=== PATIENT | female | born 1980 | race Caucasian/White ===

== ENCOUNTER 2016-07-11 08:00 | Outpatient (CLI) | payer MEDICAID | END 2016-07-11 08:01 | disposition home or self-care (01) | DX: R53.83 Other fatigue (principal); R61 Generalized hyperhidrosis; L65.9 Nonscarring hair loss, unspecified ==

== ENCOUNTER 2021-12-01 10:58 | Outpatient (CLI) | payer MEDICAID ==
[2021-12-01 17:58] LABS: BASOPHILS % (AUTO) 0.5 %; EOSINOPHILS # (AUTO) 0.1 10^3/uL (0.0-0.7); EOSINOPHILS % (AUTO) 2.2 %; HCT - HEMATOCRIT 42.1 % (37.0-47.0); HGB - HEMOGLOBIN 14.1 g/dL (12.0-16.0); LYMPHOCYTES # (AUTO) 1.7 10^3/uL (1.5-3.5); LYMPHOCYTES % (AUTO) 30.1 %; MEAN CORPUSCULAR HEMOGLOBIN 33.2 pg (27.0-31.0); MEAN CORPUSCULAR HGB CONC 33.5 g/dL (32.0-36.0); MEAN CORPUSCULAR VOLUME 99.1 fL (81.0-99.0); MEAN PLATELET VOLUME 10.9 fL (7.9-10.8); MONOCYTES # (AUTO) 0.3 10^3/uL (0.0-1.0); MONOCYTES % (AUTO) 5.9 %; NEUTROPHILS # (AUTO) 3.5 10^3/uL (1.5-6.6); PLT - PLATELET COUNT 299 10^3/uL (130-450); RED BLOOD COUNT 4.25 10^6/uL (4.20-5.40); RED CELL DISTRIBUTION WIDTH 11.5 % (12.0-15.0); WHITE BLOOD COUNT 5.8 x10^3/uL (4.8-10.8)
[2021-12-01 18:12] LABS: ALBUMIN 4.6 g/dL (3.2-5.5); ALBUMIN/GLOBULIN RATIO 1.4 (1.0-2.2); ALKALINE PHOSPHATASE 45 IU/L (42-121); ALT ALANINE AMINOTRANSFERASE 17 IU/L (10-60); AST ASPARTATE AMINOTRANSFERASE 21 IU/L (10-42); BILIRUBIN,TOTAL 0.7 mg/dL (0.2-1.0); BUN - BLOOD UREA NITROGEN 12 mg/dL (6-20); CALCIUM 9.8 mg/dL (8.5-10.3); CARBON DIOXIDE - CO2 28 mmol/L (21-32); CHLORIDE 100 mmol/L (101-111); CHOL/HDL RATIO 4.7 (<4.4); CHOLESTEROL 220 mg/dL; CREATININE 0.7 mg/dL (0.4-1.0); GFR - MDRD 93 (>89); GLUCOSE 96 mg/dL (70-100); HDL CHOLESTEROL 47 mg/dL; LDL CHOLESTEROL,CALCULATED 143 mg/dL; POTASSIUM 4.3 mmol/L (3.5-5.0); SODIUM 137 mmol/L (135-145); TOTAL PROTEIN 7.9 g/dL (6.7-8.2); TRIGLYCERIDES 148 mg/dL; VLDL CHOLESTEROL 30 mg/dL
[2021-12-01 18:20] LABS: THYROID STIMULATING HORMONE 2.16 uIU/mL (0.34-5.60)
[2021-12-01 18:31] LABS: FOLATE 15.54 ng/mL (5.90 - >24.8)
== END 2021-12-01 10:59 | disposition home or self-care (01) ==
LOC: LAB.N 10:58
PROVIDERS: ATTEND Physician Assistant
DX: R20.2 Paresthesia of skin (principal); Z13.9 Encounter for screening, unspecified; Z13.220 Encounter for screening for lipoid disorders; L65.9 Nonscarring hair loss, unspecified; F10.11 Alcohol abuse, in remission
CPT/HCPCS: 36415; 80053; 80061; 82306; 82607; 82746; 83721; 84443; 85025

== ENCOUNTER 2022-05-05 11:27 | Outpatient (CLI) | payer MEDICAID ==
[2022-05-09 19:29] LABS: CHLAMYDIA TRACHOMATIS DNA NEGATIVE (NEGATIVE); NEISSERIA GONORRHOEAE DNA NEGATIVE (NEGATIVE); TRICHOMONAS VAGINALIS DNA NEGATIVE (NEGATIVE)
== END 2022-05-05 23:59 | disposition home or self-care (01) ==
LOC: LAB.WCP 11:27
PROVIDERS: ATTEND Internal Medicine
DX: N30.00 Acute cystitis without hematuria (principal)
CPT/HCPCS: 87491; 87591; 87661

== ENCOUNTER 2022-11-20 10:43 | Outpatient (CLI) | payer MEDICAID ==
[2022-11-20 17:36] LABS: BASOPHILS % (AUTO) 0.5 %; EOSINOPHILS # (AUTO) 0.1 10^3/uL (0.0-0.7); EOSINOPHILS % (AUTO) 1.5 %; HCT - HEMATOCRIT 44.1 % (37.0-47.0); HGB - HEMOGLOBIN 15.1 g/dL (12.0-16.0); LYMPHOCYTES # (AUTO) 2.2 10^3/uL (1.5-3.5); LYMPHOCYTES % (AUTO) 34.5 %; MEAN CORPUSCULAR HEMOGLOBIN 34.9 pg (27.0-31.0); MEAN CORPUSCULAR HGB CONC 34.2 g/dL (32.0-36.0); MEAN CORPUSCULAR VOLUME 101.8 fL (81.0-99.0); MEAN PLATELET VOLUME 10.8 fL (7.9-10.8); MONOCYTES # (AUTO) 0.5 10^3/uL (0.0-1.0); MONOCYTES % (AUTO) 8.2 %; NEUTROPHILS # (AUTO) 3.6 10^3/uL (1.5-6.6); PLT - PLATELET COUNT 291 10^3/uL (130-450); RED BLOOD COUNT 4.33 10^6/uL (4.20-5.40); RED CELL DISTRIBUTION WIDTH 12.4 % (12.0-15.0); WHITE BLOOD COUNT 6.5 x10^3/uL (4.8-10.8)
[2022-11-20 17:52] LABS: ALBUMIN 4.2 g/dL (3.2-5.5); ALBUMIN/GLOBULIN RATIO 1.1 (1.0-2.2); ALKALINE PHOSPHATASE 68 IU/L (42-121); ALT ALANINE AMINOTRANSFERASE 117 IU/L (10-60); AST ASPARTATE AMINOTRANSFERASE 104 IU/L (10-42); BILIRUBIN,TOTAL 1.2 mg/dL (0.2-1.0); BUN - BLOOD UREA NITROGEN 12 mg/dL (6-20); CALCIUM 9.2 mg/dL (8.5-10.3); CARBON DIOXIDE - CO2 24 mmol/L (21-32); CHLORIDE 103 mmol/L (101-111); CHOL/HDL RATIO 3.1 (<4.4); CHOLESTEROL 229 mg/dL; CREATININE 0.7 mg/dL (0.4-1.0); GFR - MDRD 92 (>89); GLUCOSE 74 mg/dL (70-100); HDL CHOLESTEROL 73 mg/dL; LDL CHOLESTEROL,CALCULATED 130 mg/dL; LDL/HDL RATIO 1.8 (<4.4); POTASSIUM 4.4 mmol/L (3.5-5.0); SODIUM 138 mmol/L (135-145); TRIGLYCERIDES 132 mg/dL; VLDL CHOLESTEROL 26 mg/dL
[2022-11-20 18:01] LABS: THYROID STIMULATING HORMONE 3.82 uIU/mL (0.34-5.60)
== END 2022-11-20 10:44 | disposition home or self-care (01) ==
LOC: LAB.N 10:43
PROVIDERS: ATTEND Physician Assistant
DX: Z13.9 Encounter for screening, unspecified (principal)
CPT/HCPCS: 36415; 80053; 80061; 83721; 84443; 85025

== ENCOUNTER 2022-12-02 07:36 | Outpatient (CLI) | payer MEDICAID ==
--- NOTE | 2022-12-02 12:33 | Ultrasound Report ---
PROCEDURE: Abdomen Limited INDICATIONS: ELEVATED LIVER FUNCTION TESTS TECHNIQUE: Real-time focused scanning was performed of the abdomen, with image documentation. COMPARISONS: None. FINDINGS: Liver: The liver has a normal size. Hepatic echotexture is increased consistent with hepatic steatos is. Gallbladder: Unremarkable. Biliary ducts: Intrahepatic bile ducts are non-dilated. Extrahepatic bile duct caliber measures 4.9 mm. Normal is 6-7 mm or less in diameter, or 10 mm or less post-cholecystectomy. Pancreas: Visualized portions of the pancreas are sonographically normal. Right kidney: Normal in size and echotexture. Right kidney measures 9.4 cm long. No hydronephrosis o r nephrolithiasis. No solid masses. No complex renal cystic lesions which require follow-up. Aorta: Visualized aorta is normal in caliber at less than 3 cm. IVC: Intrahepatic inferior vena cava is patent. Miscellaneous: No free abdominal fluid. IMPRESSION: 1. Hyperechoic liver consistent with hepatic steatosis or cirrhosis. 2. No acute abnormality. Reviewed by: Jean Claude Colon on 12/02/2022 11:32 AM GINA Approved by: Jean Claude Colon on 12/02/2022 11:32 AM GINA Station ID: [id number]
== END 2022-12-02 07:37 | disposition home or self-care (01) ==
LOC: DI 07:36
PROVIDERS: ATTEND Physician Assistant
DX: R74.01 Elevation of levels of liver transaminase levels (principal)

== ENCOUNTER 2023-04-15 01:04 | Outpatient (CLI) | payer MEDICAID | END 2023-04-15 23:59 | disposition critical access hospital (66) | LOC: EMS 01:04 | DX: T43.592A Poisoning by other antipsychotics and neuroleptics, intentional self-harm, initial encounter (principal); R40.4 Transient alteration of awareness | CPT/HCPCS: A0425; A0429; A0999 ==

== ENCOUNTER 2023-04-15 01:24 | Emergency (ER) | payer MEDICAID ==
[2023-04-15] MEDS ORDERED: ROCURONIUM 50 MG/5 ML VIAL IVP STA (01:32)
[2023-04-15] MEDS ORDERED: SODIUM CHLORIDE 0.9% 1,000 ML IV STA (01:33)
--- NOTE | 2023-04-15 01:36 | ED Physician Documentation ---
PD HPI OVERDOSE - Stated complaint Stated Complaint: OD, ETOH - History obtained from History obtained from: Friend (Boyfriend reported through EMS), EMS (History from medics as patient within the hour prior to arrival had ingested 30 tablets of her Seroquel 25 mg medication and had been drinking heavily just prior to that. Reported suicidal comments and intentional overdose. EMS noted the patient was alert on their arrival but became well obtunded) - History of Present Illness Timing - onset: How many hours ago (1), Today Subtance(s) ingested: Single (seroquel 25 mg tab - 30 tabs.), EtOH Associated symptoms: Resp depression, Decreased responsiveness, Agitated (initially for EMS, but declining alertness quickly enroute.) Contributing factors: Depresssed, Suicidal (by report from boyfriend.) Similar symptoms before: Other (unknown - no prior records/visits to our facility.) Review of Systems Unable to obtain: Unresponsive, Intoxicated PD PAST MEDICAL HISTORY - Past Medical History Cardiovascular: None Respiratory: None Endocrine/Autoimmune: None Psych: Depression, Anxiety - Allergies Allergies/Adverse Reactions: Allergies Allergy/AdvReac Type Severity Reaction Status Date / Time Unable to Assess Allergy Verified 04/15/23 02:02 PD ED PE NORMAL - Vitals Vital signs reviewed: Yes (sats are okay on NC supplement) - General General: Other (nonverbal and no movement spontaneous. Responds to painful/tactile stimulus, not to verbal. Shallow appearing resp effort.). No: Alert and oriented X 3 - Neck Neck: Supple, no meningeal sign - Cardiac Cardiac: No: RRR (regular but tachycardic) - Respiratory Respiratory: Clear bilaterally - Abdomen Abdomen: Non distended, No organomegaly. No: Normal bowel sounds (decreased) - Female Female : Deferred - Rectal Rectal: Deferred - Derm Derm: Normal color, Warm and dry - Extremities Extremities: No edema - Neuro Neuro: No motor deficit Eye Opening: To Pain Motor: Withdraws to Pain Verbal: Incomprehensible GCS Score: 8 Results - Vitals Vitals: Vital Signs - 24 hr 04/15/23 04/15/23 04/15/23 01:25 01:35 01:40 Temperature 36.5 C 35.1 C L Heart Rate 128 H 85 134 H Respiratory 16 16 18 Rate Blood Pressure 110/62 121/92 H 98/41 L O2 Saturation 100 100 96 11/12/23 11/12/23 11/12/23 01:46 01:50 02:08 Temperature Heart Rate 132 H 122 H 128 H Respiratory 18 18 Rate Blood Pressure 110/73 136/94 H O2 Saturation 99 100 04/15/23 04/15/23 04/15/23 02:14 02:22 02:42 Temperature 33.7 C L 33.7 C L Heart Rate 117 H 127 H 120 H Respiratory 16 16 Rate Blood Pressure 136/94 H 130/91 H O2 Saturation 100 100 04/15/23 04/15/23 04/15/23 02:43 03:21 03:35 Temperature 33.6 C L 33.8 C L 33.9 C L Heart Rate 104 H 98 89 Respiratory 16 16 16 Rate Blood Pressure 134/89 H 122/98 H 120/97 H O2 Saturation 100 100 100 04/15/23 04/15/23 04/15/23 04:07 04:28 05:03 Temperature 34.2 C L 34.4 C L 34.6 C L Heart Rate 92 83 88 Respiratory 16 16 16 Rate Blood Pressure 115/92 H 115/92 H 105/79 O2 Saturation 98 100 100 04/15/23 04/15/23 04/15/23 05:14 05:31 06:40 Temperature 34.9 C L 35.5 C L Heart Rate 87 87 79 Respiratory 16 16 Rate Blood Pressure 106/82 H 112/83 H O2 Saturation 99 100 Oxygen O2 Source Mechanical ventilator - EKG (time done) 01:55 EKG releavant findings:: EKG personally interpreted by author of this note. Relevant findings are: Rate: Rate (enter#) (115) Rhythm: Sinus tachycardia [place]: Normal Intervals: Normal DC QRS: Normal Ischemia: Normal ST segments. No: ST elevation c/w ischemia, ST depression Compare to prior EKG: Old EKG unavailable - Labs Labs: Laboratory Tests 04/15/23 04/15/23 04/15/23 01:35 01:35 01:57 WBC 4.4 L RBC 3.47 L Hgb 12.2 Hct 35.4 L MCV 102.0 H MCH 35.2 H MCHC 34.5 RDW 12.1 Plt Count 186 MPV 9.6 Neut # (Auto) 1.5 Lymph # (Auto) 2.5 [place] # (Auto) 0.3 Eos # (Auto) 0.1 Baso # (Auto) 0.0 Absolute Nucleated RBC 0.00 Nucleated RBC % 0.0 Bld Gas Analysis Time Sample Site ABG pH ABG pCO2 ABG pO2 ABG HCO3 ABG Total CO2 ABG O2 Saturation ABG Base Excess Charli Test Respiration Rate Vent Mode FiO2 PEEP Pressure Support Vent Sodium 144 Potassium 2.6 L Chloride 120 H* Carbon Dioxide 17 L Anion Gap 7.0 BUN 7 Creatinine 0.3 L Estimated GFR (MDRD) 245 Glucose 93 POC Whole Bld Glucose Calcium 5.6 L* Magnesium 1.1 L Total Bilirubin 0.3 AST 48 H ALT 47 Alkaline Phosphatase 43 Total Creatine Kinase 80 Total Protein 4.2 L Albumin 2.8 L Globulin 1.4 L Albumin/Globulin Ratio 2.0 Lipase 17 TSH 2.07 Urine Color LIGHT YELLOW Urine Clarity CLEAR Urine pH 6.0 Ur Specific [place] <=1.005 Urine Protein NEGATIVE Urine Glucose (UA) NEGATIVE Urine Ketones NEGATIVE Urine Occult Blood NEGATIVE Urine Nitrite NEGATIVE Urine Bilirubin NEGATIVE Urine Urobilinogen 0.2 (NORMAL) Ur Leukocyte Esterase NEGATIVE Ur Microscopic Review NOT INDICATED Urine Culture Comments NOT INDICATED Salicylates < 1.5 Urine Opiates Screen NEGATIVE Ur Oxycodone Screen NEGATIVE Urine Methadone Screen NEGATIVE Ur Propoxyphene Screen NEGATIVE Acetaminophen < 0 L Ur Barbiturates Screen NEGATIVE Ur Tricyclics Screen POSITIVE H Ur Phencyclidine Scrn NEGATIVE Ur Amphetamine Screen NEGATIVE U Methamphetamines Scrn NEGATIVE U Benzodiazepines Scrn NEGATIVE Urine Cocaine Screen NEGATIVE U Cannabinoids Screen NEGATIVE Ethyl Alcohol 248.8 04/15/23 04/15/23 02:10 03:31 WBC RBC Hgb Hct MCV MCH MCHC RDW Plt Count MPV Neut # (Auto) Lymph # (Auto) [place] # (Auto) Eos # (Auto) Baso # (Auto) Absolute Nucleated RBC Nucleated RBC % Bld Gas Analysis Time 0210 Sample Site RIGHT RADIAL ABG pH 7.41 ABG pCO2 32 L ABG pO2 160 H* ABG HCO3 19.3 L ABG Total CO2 20.3 L ABG O2 Saturation 98 ABG Base Excess -4.4 L Charli Test POSITIVE Respiration Rate 16 Vent Mode ASV FiO2 50.00 PEEP 5 Pressure Support Vent 17 Sodium Potassium Chloride Carbon Dioxide Anion Gap BUN Creatinine Estimated GFR (MDRD) Glucose POC Whole Bld Glucose 115 H Calcium Magnesium Total Bilirubin AST ALT Alkaline Phosphatase Total Creatine Kinase Total Protein Albumin Globulin Albumin/Globulin Ratio Lipase TSH Urine Color Urine Clarity Urine pH Ur Specific [place] Urine Protein Urine Glucose (UA) Urine Ketones Urine Occult Blood Urine Nitrite Urine Bilirubin Urine Urobilinogen Ur Leukocyte Esterase Ur Microscopic Review Urine Culture Comments Salicylates Urine Opiates Screen Ur Oxycodone Screen Urine Methadone Screen Ur Propoxyphene Screen Acetaminophen Ur Barbiturates Screen Ur Tricyclics Screen Ur Phencyclidine Scrn Ur Amphetamine Screen U Methamphetamines Scrn U Benzodiazepines Scrn Urine Cocaine Screen U Cannabinoids Screen Ethyl Alcohol - Rads (name of study) chest xray Relevant Findings:: Prelim report reviewed (ETT 3 cm above steffanie), EMP independent interpretation of test (tube just below clavicles level, above steffanie. No infiltrates. ) Procedures - Intubation - Major Provider: Emergency physician Medications: Versed, Rocuronium Blade: Glidescope Tube: Size-enter number (7.5), Cuffed, Marked at teeth-enter cm (23) Route: Oral Confirmation: Direct visualization, Bilateral breath sounds, No abdominal breath sound, End tidal CO2, Pulse ox, Chest xray Complications: No compications PD Medical Decision Making - ED course Complexity details: considered differential (Patient arrives via EMS with progressive worsening of level of consciousness within the hour of ingestion high dose of Seroquel combined with alcohol. Concern for respiratory status and airway protection with high risk for vomiting and hypoventilation.), d/w patient Reviewed Lab Results: The patient's chemistries came back showing low electrolytes of potassium 2.6, calcium 5.6 and magnesium 1.1. I ordered replacements IV for these 3. She is also continue with IV fluids for hydration with initial bolus given. She remains sedated well with the propofol and episodic midazolam. Her ventilator settings seem adequate with the initial blood gas showing a good pH and PCO2 but higher oxygen. The FiO2 was decreased from 50-30. We will recheck a blood gas here soon. We will also recheck her metabolic profile and magnesium level. At this point [facility] in [place] is been reviewing the case. They reportedly have beds available starting in the morning but needed the morning shift to arrive so likely they will call us back around 7 and presumably able to accept transfer at that time. ED course: The patient arrived with progressive worsening of level of consciousness subsequent to an overdose of sedating medications with alcohol. Medics report the patient's responsiveness was decreasing steadily. They were providing some oxygen supplementation on the way. She had an IV in place and was given IV fluids with improvement in blood pressure that initially was 80 systolic. With concern for hypoventilation as well as airway protection with high risk for vomiting, the decision was to intubate the patient with a Glascow coma scale of 8. She did have some mild gag reflex but very minimal. She did appear intoxicated but I was still concerned for her sensorium or awareness of the intubation. Therefore she was given midazolam 5 mg IV with further sedation. [id number] was being performed to back assist her respiratory rate. Her oxygenation was good throughout all of this. Endotracheal intubation was performed without complications on first attempt using a glide scope. The patient was placed on a ventilator and we will start a propofol drip with good blood pressure at this time. She is mildly tachycardic. This certainly could be related to the Seroquel with some anticholinergic effect. Her temperature is noted to be [address] a warming unit on her. NG tube and Diaz were both placed. She is having good diuresis. With anticipation of prolonged sedation given the amount of Seroquel and also blood alcohol of 248, we will look for ICU admission. We do not have any ICU beds available at our hospital. We are starting to call around to other facilities to see bed availability. Endotracheal intubation was confirmed initially with lung sounds and end-tidal CO2 and visual identification through the cords. Chest x-ray was also done whi ch showed it to be in place about 3 cm above the steffanie. Lung napoles otherwise are clear. Labs are coming back and show a high chloride level. Her sodium level is normal at 148. Magnesium was low at 1.1 and calcium at 5.6. We will provide IV fluids support and also I ordered a magnesium and calcium IV supplements. We will recheck electrolytes an hour or 2 after those infusions are complete. Repeat blood gas at appropriate intervals. We will watch for temperature and heart rate. We will also watch for risk of seizures and arrhythmias related to the Seroquel. - Critical Care Time(min): 65 Time Includes: Direct patient care, Reassess patient, Document care, Coordinate care, Medical consult, See progress note Data interpretation: Labs, Pulse ox, CXR Procedures excluded from critical care time: Intubation, EKG Departure - Departure Disposition: 02 Transfer Acute Care Hosp Clinical Impression: Altered mental status, Intentional overdose, Suicide attempt, Intoxication by drug Condition: Stable Record reviewed to determine appropriate education?: Yes
[2023-04-15] MEDS ORDERED: MIDAZOLAM 10 MG/2 ML VIAL IVP STA (01:40)
[2023-04-15] MEDS ORDERED: MIDAZOLAM 2 MG/2 ML VIAL ONE (01:50)
[2023-04-15 01:57] LABS: BASOPHILS % (AUTO) 0.5 %; EOSINOPHILS # (AUTO) 0.1 10^3/uL (0.0-0.7); EOSINOPHILS % (AUTO) 1.8 %; HCT - HEMATOCRIT 35.4 % (37.0-47.0); HGB - HEMOGLOBIN 12.2 g/dL (12.0-16.0); LYMPHOCYTES # (AUTO) 2.5 10^3/uL (1.5-3.5); LYMPHOCYTES % (AUTO) 56.2 %; MEAN CORPUSCULAR HEMOGLOBIN 35.2 pg (27.0-31.0); MEAN CORPUSCULAR HGB CONC 34.5 g/dL (32.0-36.0); MEAN PLATELET VOLUME 9.6 fL (7.9-10.8); MONOCYTES # (AUTO) 0.3 10^3/uL (0.0-1.0); NEUTROPHILS # (AUTO) 1.5 10^3/uL (1.5-6.6); PLT - PLATELET COUNT 186 10^3/uL (130-450); RED BLOOD COUNT 3.47 10^6/uL (4.20-5.40); RED CELL DISTRIBUTION WIDTH 12.1 % (12.0-15.0); WHITE BLOOD COUNT 4.4 x10^3/uL (4.8-10.8)
[2023-04-15] MEDS ORDERED: PROPOFOL 1000 MG/100 ML 1,000 MG/100 ML BOTTLE IV SCH ×2 (02:00→12:00)
[2023-04-15 02:12] LABS: ALBUMIN 2.8 g/dL (3.2-5.5); CK- CREATINE KINASE 80 IU/L (30-223); ETOH - ETHANOL 248.8 mg/dL; LIPASE 17 U/L (11-82); MAGNESIUM 1.1 mg/dL (1.7-2.3)
[2023-04-15 02:15] LABS: MUDS CUTOFF CONCENTRATIONS CUTOFF CONC BELOW:
[2023-04-15 02:20] LABS: ACETAMINOPHEN < 0 ug/mL (10-30)
[2023-04-15 02:21] LABS: ALKALINE PHOSPHATASE 43 IU/L (42-121); ALT ALANINE AMINOTRANSFERASE 47 IU/L (10-60); AST ASPARTATE AMINOTRANSFERASE 48 IU/L (10-42); BILIRUBIN,TOTAL 0.3 mg/dL (0.2-1.0); BUN - BLOOD UREA NITROGEN 7 mg/dL (6-20); CALCIUM 5.6 mg/dL (8.5-10.3); CARBON DIOXIDE - CO2 17 mmol/L (21-32); CHLORIDE 120 mmol/L (101-111); CREATININE 0.3 mg/dL (0.6-1.3); GFR - MDRD 245 (>89); GLUCOSE 93 mg/dL (74-104); POTASSIUM 2.6 mmol/L (3.5-4.5); SALICYLATE < 1.5 mg/dL; SODIUM 144 mmol/L (135-145); TOTAL PROTEIN 4.2 g/dL (6.4-8.9)
[2023-04-15 02:24] LABS: ABG BASE EXCESS -4.4 mmol/L (-2.0-3.0); ABG HCO3 19.3 mmol/L (22.0-26.0); ABG PCO2 32 mmHg (34-45); ABG PH 7.41 (7.35-7.45); ABG TCO2 20.3 MMOL/L (21.0-29.0)
[2023-04-15 02:25] LABS: THYROID STIMULATING HORMONE 2.07 uIU/mL (0.34-5.60)
[2023-04-15 02:25] LABS: ABG OXYGEN SATURATION 98 % (94-98); ALLEN TEST POSITIVE
[2023-04-15 02:27] LABS: ABG MODE OF VENTILATION ASV; ABG RESPIRATORY RATE 16 b/min
[2023-04-15 02:29] LABS: ABG PO2 160 mmHg (80-100)
[2023-04-15 02:32] LABS: BILIRUBIN,URINE NEGATIVE (NEGATIVE); GLUCOSE, URINE (UA) NEGATIVE (NEGATIVE); KETONES,URINE (UA) NEGATIVE (NEGATIVE); LEUKOCYTE ESTERASE, URINE NEGATIVE (NEGATIVE); NITRITE,URINE NEGATIVE (NEGATIVE); OCCULT BLOOD,URINE NEGATIVE (NEGATIVE); PROTEIN,URINE NEGATIVE (NEGATIVE); UROBILINOGEN,URINE 0.2 (NORMAL) E.U./dL (NORMAL)
[2023-04-15 02:35] LABS: CLARITY,URINE CLEAR (CLEAR)
[2023-04-15] MEDS ORDERED: MAGNESIUM SULFATE 2 GRAM 2 GM/50 ML BAG IV ONE ×2 (02:36→14:15)
[2023-04-15] MEDS ORDERED: CALCIUM GLUC 1,000MG/50ML-NACL 1,000 MG/50 ML BAG IV STA (02:37)
[2023-04-15 02:47] LABS: AMPHETAMINE SCREEN,URINE NEGATIVE (NEGATIVE); BARBITURATE SCREEN,UR NEGATIVE (NEGATIVE); BENZODIAZEPINES SCREEN, URINE NEGATIVE (NEGATIVE); COCAINE SCREEN URINE NEGATIVE (NEGATIVE); METHADONE SCREEN, URINE NEGATIVE (NEGATIVE); METHAMPHETAMINES SCREEN, URINE NEGATIVE (NEGATIVE); OPIATE SCREEN, URINE NEGATIVE (NEGATIVE); OXYCODONE SCREEN, URINE NEGATIVE (NEGATIVE); PROPOXYPHENE SCREEN, URINE NEGATIVE (NEGATIVE); THC CANNABINOID SCREEN, URINE NEGATIVE (NEGATIVE); TRICYCLIC ANTIDEPRESSANT,URINE POSITIVE (NEGATIVE)
[2023-04-15] MEDS: MIDAZOLAM 2 MG/2 ML VIAL IVP PRN ×2 (04:27→06:42)
[2023-04-15] MEDS ORDERED: POTASSIUM CHLOR 10 MEQ/100 ML 10 MEQ/100 ML BAG IV ONE (06:41)
[2023-04-15 07:10] LABS: HCG UR QUAL NEGATIVE
[2023-04-15 07:23] LABS: ALBUMIN 3.7 g/dL (3.2-5.5); ALBUMIN/GLOBULIN RATIO 1.9 (1.0-2.2); BILIRUBIN,TOTAL 0.4 mg/dL (0.2-1.0); CALCIUM 8.2 mg/dL (8.5-10.3); CREATININE 0.5 mg/dL (0.6-1.3); MAGNESIUM 1.9 mg/dL (1.7-2.3); POTASSIUM 3.6 mmol/L (3.5-4.5); TOTAL PROTEIN 5.7 g/dL (6.4-8.9)
[2023-04-15] MEDS ORDERED: PROPOFOL 1000 MG/100 ML 1,000 MG/100 ML BOTTLE IV ONE (07:34)
[2023-04-15] MEDS ORDERED: MIDAZOLAM DRIP 50 MG/50 ML 50 MG/50 ML BAG IV SCH (09:00)
--- NOTE | 2023-04-15 09:00 | XRAY Report ---
PROCEDURE: Chest for Line Placement INDICATIONS: tube placement TECHNIQUE: One view of the chest was acquired. COMPARISON: None. FINDINGS: Surgical changes and devices: Endotracheal tube is present approximately 1.8 cm superior to the richie na. Nasogastric tube is present with distal tip projecting below the left hemidiaphragm. Lungs and pleura: No pleural effusions or pneumothorax. Lungs are clear. Mediastinum: Mediastinal contours appear normal. Heart size is normal. Bones and chest wall: No suspicious bony lesions. Overlying soft tissues appear unremarkable. IMPRESSION: Support lines as above. The above findings are concordant with preliminary report. Reviewed by: Minal Sheehan MD on 04/15/2023 8:58 AM PST Approved by: Minal Sheehan MD on 04/15/2023 8:58 AM PST Station ID: [id number]
[2023-04-15] MEDS ORDERED: DEXMEDETOMIDINE 400 MCG/100 ML 100 ML IV PRN (11:21)
[2023-04-15] MEDS ORDERED: POTASSIUM CHLORIDE INJ 40 MEQ in SODIUM CHLORIDE 0.9% 500 ML IV ONE (14:15)
[2023-04-15] MEDS ORDERED: POTASSIUM CHLOR 10 MEQ/100 ML 10 MEQ/100 ML BAG IV SCH (15:00)
[2023-04-15] MEDS ORDERED: ENOXAPARIN 40 MG/0.4 ML SYRINGE SUBQ STA (15:06)
[2023-04-15 15:07] VITALS: BP 126/85; O2SAT 99
[2023-04-15] MEDS ORDERED: FAMOTIDINE 20 MG/2 ML VIAL IVP STA (15:10)
== END 2023-04-15 16:21 | disposition short-term general hospital (02) ==
LOC: MERGE 01:24 → ED 01:24
DX: T43.592A Poisoning by other antipsychotics and neuroleptics, intentional self-harm, initial encounter (principal); E87.6 Hypokalemia; E83.51 Hypocalcemia; E83.42 Hypomagnesemia; R06.89 Other abnormalities of breathing; F10.129 Alcohol abuse with intoxication, unspecified; Y90.8 Blood alcohol level of 240 mg/100 ml or more; Z75.1 Person awaiting admission to adequate facility elsewhere
CPT/HCPCS: 31500; 36415; 36600; 51702; 80053; 80306; 80307; 80320; 80329; 81001; 81003; 81025; 82550; 82803; 83690; 83735; 84443; 85025; 87086; 93005; 94002; 99291

== ENCOUNTER 2023-12-08 21:19 | Emergency (ER) | payer MEDICAID, OTHER ==
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
[2023-12-08 21:34] VITALS: BP 127/90; O2SAT 96
== END 2023-12-08 21:45 | disposition home or self-care (01) ==
LOC: ED 21:19
DX: S01.511A Laceration without foreign body of lip, initial encounter (principal); S01.111A Laceration without foreign body of right eyelid and periocular area, initial encounter; R04.0 Epistaxis; Y04.2XXA Assault by strike against or bumped into by another person, initial encounter
CPT/HCPCS: 99281; 99283